=== PATIENT | female | born 2000 | race Caucasian/White ===

== ENCOUNTER 2022-01-04 12:43 | Emergency (ER) | payer OTHER, SELFPAY ==
[2022-01-04 13:21] VITALS: BP 136/83; PULSE 73; RESP 16; TEMP 37.1; O2SAT 97; BMI 26.5
--- NOTE | 2022-01-04 14:36 | ED_ITS ---
HPI - General Adult General Time Seen by Provider: 14:37 Date Seen: 01/04/22 Chief complaint: Nausea/Vomiting Stated complaint: Vomiting Time Seen by Provider: 01/04/22 14:27 Source: patient Mode of arrival: ambulatory Limitations: no limitations History of Present Illness HPI narrative: Patient is a 21 year white female [employer] student who reports that she has h ad some increasing anxiety recently, that she has generalized anxiety disorder, and has had more upset stomach and some nausea. She has vomited some clear yellowish liquid, but never food. She is eating but eating less than normal. She is able to take oral fluids. She reports that she has history of polycystic ovarian syndrome, gets irregular periods, reports she has not had sexual activity, and also is working up an inflammatory [employer] issue with [place]. No shortness of breath, no chest pain, no COVID symptoms, no leg swelling or edema. No jaundice. Related Data Home Medications Medication Instructions Recorded Confirmed escitalopram oxalate 10 mg tablet mg 01/04/22 fexofenadine .ROUTE 01/04/22 Allergies Allergy/AdvReac Type Severity Reaction Status Date / Time Penicillins Allergy Mild Verified 01/04/22 14:48 Review of Systems Status of ROS: Reports: 10 or more systems reviewed and unremarkable except as noted in History and below PFSH PFS Social History Smoking Status: Never smoker How often do you have a drink containing alcohol: 2-4 times a month AUDIT-C Alcohol total score: 2 Non-prescribed substance use: denies use Exam Narrative: Exam Narrative: Objective: Vital signs unremarkable In general patient is alert orient x3 noncyanotic no jaundice or scleral icterus HEENT otherwise unremarkable abdomen benign soft no masses no rebound Extremities with good perfusion, neurologic grossly nonfocal Const: Vital Signs, click to edit/add: Vital Signs - 24 hr 01/04/22 13:21 Temperature 98.8 F Pulse Rate [Right Pulse Oximeter] 73 Respiratory Rate 16 Blood Pressure [Ri ght Upper Arm] 136/83 Pulse Oximetry 97 Oxygen Delivery Me thod Room Air Course Vital Signs Vital signs: Initial Vital Signs Temperature 98.8 F 01/04/22 13:21 Temperature Source Temporal Artery Scan 01/04/22 13:21 Pulse Rate 73 01/04/22 13:21 Pulse Rhythm 01/04/22 13:21 Respiratory Rate 16 01/04/22 13:21 Blood Pressure 136/83 01/04/22 13:21 Blood Pressure Mean 100 01/04/22 13:21 Blood Pressure Position Sitting 01/04/22 13:21 Pulse Oximetry 97 01/04/22 13:21 Oxygen Delivery Method 01/04/22 13:21 Vital Signs Temperature 98.8 F 01/04/22 13:21 Pulse Rate 73 01/04/22 13:21 Respiratory Rate 16 01/04/22 13:21 Blood Pressure 136/83 01/04/22 13:21 Pulse Oximetry 97 01/04/22 13:21 Oxygen Delivery Method 01/04/22 13:21 Temperature 98.8 F 01/04/22 13:21 Pulse Rate 73 01/04/22 13:21 Respiratory Rate 16 01/04/22 13:21 Blood Pressure 136/83 01/04/22 13:21 Pulse Oximetry 97 01/04/22 13:21 Oxygen Delivery Method 01/04/22 13:21 Medical Decision Making MDM Narrative Medical decision making narrative: Patient has had some increased nausea associated with increased anxiety, the tube might be related, would recommend at this point a trial of Zofran orally, will check labs for her now and call if any abnormalities. Recommend recheck with primary care in the next few days, yogurt by mouth, may also try some Zantac or other stomach medication for a couple of days. Follow up with primary care in the next few days as mention Lab Data Labs: Lab Results 01/04/22 01/04/22 Range/Units 14:45 14:45 WBC 7.42 (4.50-11.00) K/uL RBC 4.84 (4.00-5.20) m/uL Hgb 14.3 (12.0-16.0) gm/dL Hct 43.5 (33.0-51.0) % MCV 90 (80-100) fL MCH 30 (26-34) pg MCHC 33 (32-36) gm/dL RDW Coeff of [place] 12.2 (11.5-15.5) % Plt Count 210 (140-440) K/uL Neut % (Auto) 75.7 H (42.0-72.0) % Lymph % (Auto) 18.2 L (20-44) % [place] % (Auto) 5.1 (0.0-11.0) % Eos % (Auto) 0.4 (0.0-7.0) % Baso % (Auto) 0.1 (0.0-3.0) % Neut # (Auto) 5.60 (1.7-7.0) K/uL Lymph # (Auto) 1.40 (0.90-2.90) K/uL [place] # (Auto) 0.40 (0.00-0.90) K/UL Eos # (Auto) 0.03 (0.00-0.50) K/uL Baso # (Auto) 0.01 (0.00-0.30) K/uL Abs Immat Gran (auto) 0.04 (0.00-0.30) K/uL Sodium 141 (135-149) mmol/L Potassium 3.8 (3.6-5.1) mmol/L Chloride 104 (96-114) mmol/L Carbon Dioxide 24 (20-32) mmol/L BUN 16 (5-24) mg/dL Creatinine 0.7 (0.6-1.2) mg/dL Estimated Creat Clear 144.48 Estimated GFR 128 ml/min Glucose 80 (60-115) mg/dL Calcium 9.8 (8.7-10.8) mg/dL Total Bilirubin 0.9 (0.1-1.5) mg/dL Direct Bilirubin 0.2 (0.0-0.5) mg/dL AST 28 (12-35) U/L ALT 18 (4-35) U/L Alkaline Phosphatase 79 (40-150) U/L Total Protein 8.6 H (6.0-8.3) g/dL Albumin 5.1 H (3.3-5.0) g/dL Amylase 66 (18-89) U/L Discharge Plan Discharge Clinical Impression: Nausea Patient Disposition: Home, Self-Care Condition: Stable Additional Instructions: Light activity, diet as tolerated, yogurt daily, may try some Zantac daily for a week to 2 weeks as well. Will try some Zofran orally now as he feels stop the nausea and break the cycle. Will also check a heme 4, basic 7, CRP, liver function tests to ensure that these are within normal. Will also check an amylase. Will call back if there is abnormalities that the patient needs to workup, otherwise follow up with regular doctor within the next few days. Activity Level: No Restrictions Discharge Diet: Regular Prescriptions: No Action escitalopram oxalate 10 mg tablet fexofenadine [Debbie Allergy] .ROUTE Follow Up/Referrals: Provider,Not a Local [Primary Care Provider] - Stand Alone Forms: Hybrid Security Info Instructions
[2022-01-04] MEDS: ONDANSETRON ODT 4 MG TAB PO (14:52)
[2022-01-04 14:56] LABS: Basophils Absolute Auto 0.01 K/uL (0.00-0.30); Basophils Percent Auto 0.1 % (0.0-3.0); Eosinophils Absolute Auto 0.03 K/uL (0.00-0.50); Eosinophils Percent Auto 0.4 % (0.0-7.0); Hematocrit 43.5 % (33.0-51.0); Hemoglobin* 14.3 gm/dL (12.0-16.0); Immature Granulocytes Abs Auto 0.04 K/uL (0.00-0.30); Lymphocytes Percent Auto 18.2 % (20-44); Mean Corpuscular HGB Conc 33 gm/dL (32-36); Mean Corpuscular Hemoglobin 30 pg (26-34); Mean Corpuscular Volume 90 fL (80-100); Monocytes Percent Auto 5.1 % (0.0-11.0); Neutrophils Percent Auto 75.7 % (42.0-72.0); Platelet Count* 210 K/uL (140-440); RDW Coefficient of Variation % 12.2 % (11.5-15.5); Red Blood Count 4.84 m/uL (4.00-5.20); White Blood Count* 7.42 K/uL (4.50-11.00)
[2022-01-04 15:00] LABS: Slide Review Reflex No
[2022-01-04 15:11] LABS: Albumin* 5.1 g/dL (3.3-5.0)
[2022-01-04 15:12] LABS: Chloride* 104 mmol/L (96-114); Potassium* 3.8 mmol/L (3.6-5.1); Sodium* 141 mmol/L (135-149)
[2022-01-04 15:14] LABS: Amylase* 66 U/L (18-89); Creatinine* 0.7 mg/dL (0.6-1.2); Est. Creatinine Clearance* 144.48; Estimated Glomerular Filt Rate 128 ml/min
[2022-01-04 15:15] LABS: Alanine Aminotransferase* 18 U/L (4-35); Alkaline Phosphatase* 79 U/L (40-150); Aspartate Amino Transferase* 28 U/L (12-35); Bilirubin Direct* 0.2 mg/dL (0.0-0.5); Bilirubin Total* 0.9 mg/dL (0.1-1.5); Blood Urea Nitrogen* 16 mg/dL (5-24); Calcium* 9.8 mg/dL (8.7-10.8); Carbon Dioxide* 24 mmol/L (20-32); Glucose* 80 mg/dL (60-115); Total Protein* 8.6 g/dL (6.0-8.3)
[2022-01-04 16:41] LABS: C Reactive Protein* 0.5 mg/dL (0.5-1.0)
== END 2022-01-04 16:09 | disposition home or self-care (01) ==
LOC: ED 15:25
PROVIDERS: Emergency Provider Family Medicine
DX: R11.0 Nausea (principal)
CPT/HCPCS: 36415; 80048; 80076; 82150; 85025; 86140; 99283; A9270